=== PATIENT | male | born 1980 | race Caucasian/White ===

== ENCOUNTER 2022-05-09 11:14 | Inpatient (IN) ==
[2022-05-09 13:15] LABS: Basophils # (auto) 0.06 K/uL (0-0.2); Basophils % (auto) 2.2 %; Eosinophils # (auto) 0.07 K/uL (0-0.50); Eosinophils % (auto) 2.6 %; Hematocrit (blood only) 40.8 % (40.1-51.0); Hemoglobin 14.1 g/dl (14.0-18.0); Immature Granulocytes # (auto) 0.01 K/uL (0.00-0.02); Immature Granulocytes % (auto) 0.4 %; Lymphocytes # (auto) 1.05 K/uL (1.2-3.4); Lymphocytes % (auto) 38.6 %; Mean Corpuscular Hemoglobin 35.7 pg (25.0-34.0); Mean Corpuscular Hgb Conc 34.6 g/dL (32.0-36.0); Mean Corpuscular Volume 103.3 fL (80.0-100.0); Mean Platelet Volume 9.4 fL (9.4-12.4); Monocytes # (auto) 0.46 K/uL (0.24-0.82); Monocytes % (auto) 16.9 %; Neutrophils # (auto) 1.07 K/uL (1.4-6.5); Neutrophils % (auto) 39.3 %; Platelet Count 176 K/uL (130-400); RDW Coefficient of Variation 12.4 % (11.5-14.5); RDW Standard Deviation 47.2 fL (36.4-46.3); Red Blood Count 3.95 M/uL (4.63-6.08); White Blood Count 2.72 K/ul (4.8-10.8)
[2022-05-09 13:34] LABS: Albumin Globulin Ratio 1.5 (0.9-2); Albumin Level 4.3 gm/dl (3.4-5.0); Bilirubin,Total 0.6 mg/dl (0.2-1.0); Calcium 8.7 mg/dl (8.5-10.1); Creatinine Clr Calc Pharmacy 135.3 ml/min; Est GFR (African American) 130.2 ml/min; Est GFR (Non-African American) 112.4 ml/min; Globulin 2.8 gm/dl (2.5-4.0); Magnesium 2.2 mg/dl (1.7-2.4); Potassium 3.6 mmol/L (3.5-5.1); Total Protein 7.1 gm/dl (6.0-8.3)
[2022-05-09 13:39] LABS: Troponin I High Sensitivity 6.4 pg/ml (0-20)
[2022-05-09 13:42] LABS: Appearance Urine Clear (Clear); Bilirubin Urine Negative (Negative); Blood Urine Negative (Negative); Color Urine Yellow; Glucose Urine UA Negative (Negative); Ketones Urine Negative (Negative); Leukocyte Esterase Urine Negative (Negative); Nitrite Urine Negative (Negative); Protein Urine Negative (Negative); Specific Gravity Urine 1.004 (1.000-1.030); Urobilinogen Urine Negative (Negative); pH Urine 6.5 (4.5-7.5)
[2022-05-09] MEDS ORDERED: OPTIRAY 350 100ml IV ONE (14:09)
--- NOTE | 2022-05-09 14:31 | CT Scan Report ---
CT head/brain wo con CLINICAL HISTORY: etoh, trauma Technique: Contiguous axial CT images of the head were acquired from the base of the skull to the indra glenn without intravenous contrast administration. Images were viewed in brain, subdural and bone [facility]. Automated dose lowering techniques and/or adjustment according to patient size were utilized for this exam. Comparison: None available at the time of this dictation. Findings: The ventricles, basal cisterns, and cerebral sulci are normal. There is no acute intracranial hemorrh age or evidence of acute territorial infarction. Neither mass effect, shift of the midline structures , nor abnormal extra-axial fluid collections are shown. Imaged portions of the paranasal sinuses and mastoid air cells are clear. The orbits appear normal. There are no acute fractures of the calvaria or scalp swelling. Impression: No acute intracranial hemorrhage, no evidence of acute territorial infarction or other acute intracra nial disease process. ACT 112: Negative or not required by law. Electronically signed by: Julio Girard M.D. 05/09/2022 2:29 PM
--- NOTE | 2022-05-09 14:32 | CT Scan Report ---
ABDOMEN AND PELVIS CT WITH IV CONTRAST CT DOSE: 1372.12 mGy.cm HISTORY: Confusion. Generalized abdominal pain. etoh, diarrhea TECHNIQUE: Multiaxial CT images of the abdomen and pelvis were performed following the use of intrave nous contrast. A dose lowering technique was utilized adhering to the principles of ALARA. COMPARISON STUDY: None. FINDINGS: There are mild dependent changes seen within the lung bases. No pneumoperitoneum. No pneuma tosis. No fractures within the visualized osseous structures. The heart is borderline enlarged. Hepat ic steatosis. The gallbladder, pancreas, spleen, and adrenal glands are unremarkable. Normal right ki dney. There is a 10 cm left upper pole renal cyst. This contains a thin septation. There is also a sm all focus of peripheral calcification within this cyst posteriorly. There is mild bilateral perinephr ic edema which is likely chronic. No renal or ureteral stones. No retroperitoneal lymphadenopathy. Mi ld calcified plaque within the normal caliber abdominal aorta. Mild bladder wall thickening. No pelvi c free fluid. No bowel wall thickening or obstruction. Moderate well-formed stool within the colon. N ormal appendix. IMPRESSION: 1. Mild bladder wall thickening. Recommend correlation with urinalysis to exclude a cystitis. 2. No bowel wall thickening or obstruction. 3. Normal appendix. 4. Hepatic steatosis. 5. A 10 cm left renal cyst containing a small focus of calcification and a thin septation. This is co nsistent with a Bosniak type II cyst. ACT 112: Negative or not required by law. Electronically signed by: Andres Brooke M.D. 05/09/2022 2:31 PM
[2022-05-09 14:37] LABS: Amphetamines+Metham, Urine Neg (Neg); Barbiturates, Urine Neg (Neg); Benzodiazepine, Urine Pos (Neg); Cocaine, Urine Neg (Neg); MDMA (Ecstacy), Urine Neg (Neg); Methadone, Urine Neg (Neg); Opiate, Urine Neg (Neg); Phencyclidine, Urine Neg (Neg)
[2022-05-09] MEDS ORDERED: MULTI-VITAMIN INFUSION 10 ML, THIAMINE HCL 100 MG, FOLIC ACID 1 MG in SODIUM CHLORIDE 0... IV ONE (14:46)
[2022-05-09] MEDS ORDERED: SODIUM CHLORIDE 0.9% 1000ML 500 ML IV ONE (14:46)
--- NOTE | 2022-05-09 15:15 | Electrocardiogram Report ---
Test Reason : Blood Pressure : / mmHG Vent. Rate : 068 BPM Atrial Rate : 068 BPM P-R Int : 188 ms QRS Dur : 110 ms QT Int : 430 ms P-R-T Axes : 035 -02 -59 degrees QTc Int : 457 ms Normal sinus rhythm T wave abnormality, consider lateral ischemia Abnormal ECG No previous ECGs available Confirmed by Tyler Borja ([id number]) on 05/09/2022 3:14:54 PM Referred By: REFERRED SELF Confirmed By:Maykel Borja
--- NOTE | 2022-05-09 16:40 | Emergency Department Note ---
History of Present Illness General Chief complaint: Alcohol Intoxication Stated complaint: ALCOHOL;MENTAL HEALTH Time Seen by Provider: 05/09/22 12:03 Source: patient and family Mode of arrival: ambulatory Limitations: intoxication History of Present Illness Provider complaint: Alcohol intoxication, confusion This is a 41-year-old male presents emergency department with at bedside due to concern for worsening confusion and bizarre behavior recently. Patient admits to alcohol abuse and states he drinks on a daily basis. Patient states he drinks half of a handle of Jori rum daily. He and states he did recently go to rehab but signed out after 5 days as he realized he was not yet ready to quit drinking. Patient has been seeing a counselor the last 6 months for anxiety and depression. states recently he has been behaving bizarrely and more confused, even when he did not seem intoxicated. No recent illness, fevers or chills. He denies any concern for trauma or injury. He denies nausea or vomiting, black or bloody stools. He denies chest pain, abdominal pain, trouble breathing. He denies any overt dizziness, except when "tipsy". He states he was told previously that his liver enzymes are elevated likely due to his alcohol use. He was not scheduled to see GI until later on this month. No prior abdominal or liver imaging. concerned for other possible HEAD LINEMAN etiology of his confusion in addition to his alcohol abuse. He was at [facility] this morning for a mental health appointment and was referred to the emergency room. Home Medications Medication Instructions Recorded Confirmed Type ciprofloxacin HCl 500 mg tablet 500 mg PO BID 05/09/22 05/09/22 History escitalopram oxalate 10 mg tablet 10 mg PO DAILY 05/09/22 05/09/22 History lisinopril 20 mg tablet 20 mg PO DAILY 05/09/22 05/09/22 History propranolol 40 mg tablet 40 mg PO BID 05/09/22 05/09/22 History simvastatin 20 mg tablet 20 mg PO DAILY 05/09/22 05/09/22 History Allergies Allergy/AdvReac Type Severity Reaction Status Date / Time Penicillins Allergy Rash Verified 05/09/22 19:09 Past Med/Surg History Medical History Alcohol abuse Hypertension Social History Smoking Status: Former smoker Hx Alcohol Use: Yes Alcohol type: hard liquor Hx Substance Use: No Preferred Language: Indian Communication Ability: Effective Registered Phlebotomist Part Time Required: No Beliefs That Will Affect Care: None Current Living Situation: Family Feels Safe at Home: Yes Assistive Devices: None Review of Systems A total of 10 systems reviewed and were otherwise negative All systems reviewed & are unremarkable except as noted in HPI & below Physical Exam Vital Signs Vital Signs - 24 hr 05/09/22 17:00 05/09/22 17:00 05/09/22 17:12 Pulse Rate 105 H 109 H Pulse Rate from SpO2 Sensor 109 H Respiratory Rate 18 18 Blood Pressure 128/96 Blood Pressure Mean 106 Pulse Oximetry 97 05/09/22 17:20 05/09/22 17:30 05/09/22 17:30 Pulse Rate 103 H 92 H Pulse Rate from SpO2 Sensor 117 H 91 H Respiratory Rate 17 15 Blood Pressure 140/99 Blood Pressure Mean 112 Pulse Oximetry 100 99 05/09/22 17:40 05/09/22 17:50 05/09/22 18:00 Pulse Rate 88 86 Pulse Rate from SpO2 Sensor 89 85 Respiratory Rate 18 14 Blood Pressure 145/101 H Blood Pressure Mean 115 Pulse Oximetry 98 98 05/09/22 18:00 05/09/22 18:10 05/09/22 18:20 Pulse Rate 83 81 86 Pulse Rate from SpO2 Sensor 83 82 86 Respiratory Rate 22 22 15 Blood Pressure Blood Pressure Mean Pulse Oximetry 98 98 98 05/09/22 18:30 05/09/22 18:30 05/09/22 18:40 Pulse Rate 91 H 85 Pulse Rate from SpO2 Sensor 91 H 88 Respiratory Rate 21 22 Blood Pressure 147/96 H Blood Pressure Mean 113 Pulse Oximetry 100 97 05/09/22 18:50 05/09/22 19:00 05/09/22 19:00 Pulse Rate 84 94 H Pulse Rate from SpO2 Sensor 83 94 H Respiratory Rate 19 21 Blood Pressure 155/97 H Blood Pressure Mean 116 Pulse Oximetry 98 99 GENERAL: alert, well appearing, well nourished, no distress, non-toxic EYE EXAM: normal conjunctiva, PERRL and EOM's grossly intact OROPHARYNX: no exudate, no erythema, lips, buccal mucosa, and tongue normal and mucous membranes are moist NECK: supple, no nuchal rigidity, no adenopathy, non-tender LUNGS: Clear to auscultation. Normal chest wall mechanics, no w/r/r HEART: no murmurs, S1 normal and S2 normal ABDOMEN: abdomen soft, non-tender, normo-active bowel sounds, no masses, no rebound or guarding. No obvious hepatomegaly. BACK: Back is symmetrical on inspection and there is no deformity, no midline tenderness, no CVA tenderness. SKIN: no rashes and no bruising UPPER EXTREMITIES: upper extremities are grossly normal. FROM, nml pulses b/l. LOWER EXTREMITIES: No pitting edema. FROM, nml pulses b/l. NEURO EXAM: Normal sensorium, cranial nerves II-XII grossly intact, normal speech, no gross weakness of arms, no gross weakness of legs. Gross sensation intact. Course Course 1515: I asked case management to speak with the as she had inquired about possibly petitioning for mental health evaluation or involuntary treatment. We did review results up to this point. states patient asked her to bring alcohol into the hospital for him. Kalpesh, case management went and spoke with the . 1632: Patient beginning to become more tachycardic around 101. I updated . We will add Valium to help prevent evolving withdrawal at this point. Administered Medications Discontinued Medications Ciprofloxacin (Ciprofloxacin 500 Mg Tab) 500 mg PO BID ROSA Stop: 05/19/22 20:59 Last Admin: 05/10/22 09:05 Dose: 500 mg Documented By: Admin: 05/09/22 21:30 Dose: 500 mg Documented By: ANTHONY Diazepam (Diazepam 5 Mg/Ml Inj 10ml Vial) 5 mg IV NOW STA Stop: 05/09/22 16:38 Last Admin: 05/09/22 16:55 Dose: 5 mg Documented By: ANTOINE Diazepam (Diazepam 5 Mg/Ml Inj 10ml Vial) 5 mg IV NOW STA Stop: 05/09/22 17:31 Last Admin: 05/09/22 18:10 Dose: 5 mg Documented By: ANTOINE Escitalopram Oxalate (Escitalopram Oxalate 10 Mg Tab) 10 mg PO DAILY ROSA Stop: 06/09/22 08:59 Last Admin: 05/10/22 09:06 Dose: 10 mg Documented By: KIMBERLY Gadobutrol (Gadobutrol 65ml Vial) 8.8 ml IV ONCE ONE Stop: 05/10/22 10:08 Last Admin: 05/10/22 10:06 Dose: 8.8 ml Documented By: ASHLEE Sodium Chloride (Nss 1000ml) 500 mls @ 999 mls/hr IV .Q31M ONE Stop: 05/09/22 15:16 Last Infusion: 05/09/22 15:25 Dose: 0 mls/hr Documented By: Admin: 05/09/22 15:06 Dose: 999 mls/hr Documented By: KACY Multivitamins 10 ml/ Thiamine HCl 100 mg/ Folic Acid 1 mg/Sodium Chloride 1,011.2 mls @ 250 mls/hr IV .Q4H3M ONE Stop: 05/09/22 18:48 Last Infusion: 05/09/22 21:02 Dose: 0 mls/hr Documented By: Admin: 05/09/22 15:21 Dose: 250 mls/hr Documented By: ANTOINE Sodium Chloride (Nss 1000ml) 1,000 mls @ 75 mls/hr IV .[id number] ROSA Stop: 05/11/22 12:56 Last Admin: 05/10/22 12:17 Dose: 75 mls/hr Documented By: Infusion: 05/10/22 10:51 Dose: 75 mls/hr Documented By: Admin: 05/09/22 21:31 Dose: 75 mls/hr Documented By: ANTHONY Lorazepam 1 mg/ Syringe 1 mls @ 2 mls/min IV UD PRN; Protocol PRN Reason: EtOH Withdrawal AWSS Score 6,7 Stop: 06/08/22 20:56 Last Admin: 05/10/22 12:45 Dose: 2 mls/min Documented By: KIMBERLY Ioversol (Optiray 350 100ml) 89 ml IV ONCE ONE Stop: 05/09/22 14:10 Last Admin: 05/09/22 14:10 Dose: 89 ml Documented By: DENISHA Lisinopril (Lisinopril 20 Mg Tab) 20 mg PO DAILY ROSA Stop: 06/09/22 08:59 Last Admin: 05/10/22 09:06 Dose: 20 mg Documented By: KIMBERLY Propranolol HCl (Propranolol Hcl 20 Mg Tab) 40 mg PO BID ROSA Stop: 06/08/22 20:59 Last Admin: 05/10/22 09:06 Dose: 40 mg Documented By: Admin: 05/09/22 21:31 Dose: 40 mg Documented By: ANTHONY Medical Decision Making Differential Diagnosis Differential diagnosis includes etiologies such as alcohol intoxication, toxicologic, infection, hypoglycemia, electrolyte abnormalities, cardiac sources, intracerebral event, neurologic, as well as others were entertained. Medical Records Attestation: I reviewed the patient's medical records. Home Medications Current Medication List: was personally reviewed by me Laboratory Data Attestation: I reviewed the patient's lab results. Result diagrams: 05/09/22 12:10 05/10/22 06:10 Lab Results 05/09/22 05/09/22 05/09/22 Range/Units 12:10 12:10 12:10 WBC 2.72 L (4.8-10.8) K/ul RBC 3.95 L (4.63-6.08) M/uL Hgb 14.1 (14.0-18.0) g/dl Hct 40.8 (40.1-51.0) % MCV 103.3 H (80.0-100.0) fL MCH 35.7 H (25.0-34.0) pg MCHC 34.6 (32.0-36.0) g/dL RDW Std Deviation 47.2 H (36.4-46.3) fL RDW Coeff of [place] 12.4 (11.5-14.5) % Plt Count 176 (130-400) K/uL MPV 9.4 (9.4-12.4) fL Immature Gran % (Auto) 0.4 % Neut % (Auto) 39.3 % Lymph % (Auto) 38.6 % [place] % (Auto) 16.9 % Eos % (Auto) 2.6 % Baso % (Auto) 2.2 % Neut # (Auto) 1.07 L (1.4-6.5) K/uL Lymph # (Auto) 1.05 L (1.2-3.4) K/uL [place] # (Auto) 0.46 (0.24-0.82) K/uL Eos # (Auto) 0.07 (0-0.50) K/uL Baso # (Auto) 0.06 (0-0.2) K/uL Immature Gran # (Auto) 0.01 (0.00-0.02) K/uL Sodium 145 (136-145) mmol/L Potassium 3.6 (3.5-5.1) mmol/L Chloride 108 H (98-107) mmol/L Carbon Dioxide 29 (21-32) mmol/L Anion Gap 8 (3-11) BUN 9 (6-23) mg/dl Creatinine 0.75 (0.6-1.4) mg/dl Est Cr Clr Drug Dosing 135.3 ml/min Est GFR ( Amer) 130.2 ml/min Est GFR (Non-Af Amer) 112.4 ml/min BUN/Creatinine Ratio 12.0 (10-20) Glucose 104 H (70-99(Fasting)) mg/dl Calcium 8.7 (8.5-10.1) mg/dl Magnesium 2.2 (1.7-2.4) mg/dl Total Bilirubin 0.6 (0.2-1.0) mg/dl AST 59 H (13-39) U/L ALT 76 H (7-52) U/L Alkaline Phosphatase 49 (34-104) U/L Troponin I High Sens 6.4 (0-20) pg/ml Total Protein 7.1 (6.0-8.3) gm/dl Albumin 4.3 (3.4-5.0) gm/dl Globulin 2.8 (2.5-4.0) gm/dl Albumin/Globulin Ratio 1.5 (0.9-2) Lipase 135 H (11-82) U/L Vitamin B12 (180-914) pg/ml Folate (>5.38) ng/ml TSH 0.991 (0.300-4.500) uIu/ml Urine Color Urine Appearance (Clear) Urine pH (4.5-7.5) Ur Specific [place] (1.000-1.030) Urine Protein (Negative) Urine Glucose (UA) (Negative) Urine Ketones (Negative) Urine Blood (Negative) Urine Nitrite (Negative) Urine Bilirubin (Negative) Urine Urobilinogen (Negative) Ur Leukocyte Esterase (Negative) Urine Opiates Screen (Neg) Ur Methadone, Qual (Neg) Urine Barbiturates (Neg) Ur Phencyclidine (PCP) (Neg) U Amphetamin/Meth Scrn (Neg) MDMA (Ecstasy) Screen (Neg) U OH-Alprazolam Confrm (<25) ng/mL U Benzodiazepines Scrn (Neg) 7-Amino Clonazepam (<25) ng/mL Ur Nordiazepam Confirm (<50) ng/mL U OH-ethylflurazepam (<50) ng/mL U Lorazepam Cnf GC/MS (<50) ng/mL U Oxazepam Confm GC/MS (<50) ng/mL Ur Temazepam Confirm (<50) ng/mL U OH-Triazolam Confirm (<50) ng/mL U OH-Midazolam Confirm (<50) ng/mL Ur Cocaine Metabolite (Neg) U Marijuana (THC) Screen (Neg) Drug Screen Comment Ethyl Alcohol mg/dL (<10.0) mg/dl 05/09/22 05/09/22 05/09/22 Range/Units 12:10 12:10 13:15 WBC (4.8-10.8) K/ul RBC (4.63-6.08) M/uL Hgb (14.0-18.0) g/dl Hct (40.1-51.0) % MCV (80.0-100.0) fL MCH (25.0-34.0) pg MCHC (32.0-36.0) g/dL RDW Std Deviation (36.4-46.3) fL RDW Coeff of Ak[place] (11.5-14.5) % Plt Count (130-400) K/uL MPV (9.4-12.4) fL Immature Gran % (Auto) % Neut % (Auto) % Lymph % (Auto) % [place] % (Auto) % Eos % (Auto) % Baso % (Auto) % Neut # (Auto) (1.4-6.5) K/uL Lymph # (Auto) (1.2-3.4) K/uL [place] # (Auto) (0.24-0.82) K/uL Eos # (Auto) (0-0.50) K/uL Baso # (Auto) (0-0.2) K/uL Immature Gran # (Auto) (0.00-0.02) K/uL Sodium (136-145) mmol/L Potassium (3.5-5.1) mmol/L Chloride (98-107) mmol/L Carbon Dioxide (21-32) mmol/L Anion Gap (3-11) BUN (6-23) mg/dl Creatinine (0.6-1.4) mg/dl Est Cr Clr Drug Dosing ml/min Est GFR ( Amer) ml/min Est GFR (Non-Af Amer) ml/min BUN/Creatinine Ratio (10-20) Glucose (70-99(Fasting)) mg/dl Calcium (8.5-10.1) mg/dl Magnesium (1.7-2.4) mg/dl Total Bilirubin (0.2-1.0) mg/dl AST (13-39) U/L ALT (7-52) U/L Alkaline Phosphatase (34-104) U/L Troponin I High Sens (0-20) pg/ml Total Protein (6.0-8.3) gm/dl Albumin (3.4-5.0) gm/dl Globulin (2.5-4.0) gm/dl Albumin/Globulin Ratio (0.9-2) Lipase (11-82) U/L Vitamin B12 605 (180-914) pg/ml Folate 11.39 (>5.38) ng/ml TSH (0.300-4.500) uIu/ml Urine Color Yellow Urine Appearance Clear (Clear) Urine pH 6.5 (4.5-7.5) Ur Specific [place] 1.004 (1.000-1.030) Urine Protein Negative (Negative) Urine Glucose (UA) Negative (Negative) Urine Ketones Negative (Negative) Urine Blood Negative (Negative) Urine Nitrite Negative (Negative) Urine Bilirubin Negative (Negative) Urine Urobilinogen Negative (Negative) Ur Leukocyte Esterase Negative (Negative) Urine Opiates Screen (Neg) Ur Methadone, Qual (Neg) Urine Barbiturates (Neg) Ur Phencyclidine (PCP) (Neg) U Amphetamin/Meth Scrn (Neg) MDMA (Ecstasy) Screen (Neg) U OH-Alprazolam Confrm (<25) ng/mL U Benzodiazepines Scrn (Neg) 7-Amino Clonazepam (<25) ng/mL Ur Nordiazepam Confirm (<50) ng/mL U OH-ethylflurazepam (<50) ng/mL U Lorazepam Cnf GC/MS (<50) ng/mL U Oxazepam Confm GC/MS (<50) ng/mL Ur Temazepam Confirm (<50) ng/mL U OH-Triazolam Confirm (<50) ng/mL U OH-Midazolam Confirm (<50) ng/mL Ur Cocaine Metabolite (Neg) U Marijuana (THC) Screen (Neg) Drug Screen Comment Ethyl Alcohol mg/dL 378.5 H (<10.0) mg/dl 05/09/22 05/09/22 Range/Units 13:15 13:15 WBC (4.8-10.8) K/ul RBC (4.63-6.08) M/uL Hgb (14.0-18.0) g/dl Hct (40.1-51.0) % MCV (80.0-100.0) fL MCH (25.0-34.0) pg MCHC (32.0-36.0) g/dL RDW Std Deviation (36.4-46.3) fL RDW Coeff of [place] (11.5-14.5) % Plt Count (130-400) K/uL MPV (9.4-12.4) fL Immature Gran % (Auto) % Neut % (Auto) % Lymph % (Auto) % [place] % (Auto) % Eos % (Auto) % Baso % (Auto) % Neut # (Auto) (1.4-6.5) K/uL Lymph # (Auto) (1.2-3.4) K/uL [place] # (Auto) (0.24-0.82) K/uL Eos # (Auto) (0-0.50) K/uL Baso # (Auto) (0-0.2) K/uL Immature Gran # (Auto) (0.00-0.02) K/uL Sodium (136-145) mmol/L Potassium (3.5-5.1) mmol/L Chloride (98-107) mmol/L Carbon Dioxide (21-32) mmol/L Anion Gap (3-11) BUN (6-23) mg/dl Creatinine (0.6-1.4) mg/dl Est Cr Clr Drug Dosing ml/min Est GFR ( Amer) ml/min Est GFR (Non-Af Amer) ml/min BUN/Creatinine Ratio (10-20) Glucose (70-99(Fasting)) mg/dl Calcium (8.5-10.1) mg/dl Magnesium (1.7-2.4) mg/dl Total Bilirubin (0.2-1.0) mg/dl AST (13-39) U/L ALT (7-52) U/L Alkaline Phosphatase (34-104) U/L Troponin I High Sens (0-20) pg/ml Total Protein (6.0-8.3) gm/dl Albumin (3.4-5.0) gm/dl Globulin (2.5-4.0) gm/dl Albumin/Globulin Ratio (0.9-2) Lipase (11-82) U/L Vitamin B12 (180-914) pg/ml Folate (>5.38) ng/ml TSH (0.300-4.500) uIu/ml Urine Color Urine Appearance (Clear) Urine pH (4.5-7.5) Ur Specific [place] (1.000-1.030) Urine Protein (Negative) Urine Glucose (UA) (Negative) Urine Ketones (Negative) Urine Blood (Negative) Urine Nitrite (Negative) Urine Bilirubin (Negative) Urine Urobilinogen (Negative) Ur Leukocyte Esterase (Negative) Urine Opiates Screen Neg (Neg) Ur Methadone, Qual Neg (Neg) Urine Barbiturates Neg (Neg) Ur Phencyclidine (PCP) Neg (Neg) U Amphetamin/Meth Scrn Neg (Neg) MDMA (Ecstasy) Screen Neg (Neg) U OH-Alprazolam Confrm NEGATIVE (<25) ng/mL U Benzodiazepines Scrn Pos H (Neg) 7-Amino Clonazepam NEGATIVE (<25) ng/mL Ur Nordiazepam Confirm NEGATIVE (<50) ng/mL U OH-ethylflurazepam NEGATIVE (<50) ng/mL U Lorazepam Cnf GC/MS NEGATIVE (<50) ng/mL U Oxazepam Confm GC/MS 54 H (<50) ng/mL Ur Temazepam Confirm 156 H (<50) ng/mL U OH-Triazolam Confirm NEGATIVE (<50) ng/mL U OH-Midazolam Confirm NEGATIVE (<50) ng/mL Ur Cocaine Metabolite Neg (Neg) U Marijuana (THC) Screen Neg (Neg) Drug Screen Comment SEE NOTE Ethyl Alcohol mg/dL (<10.0) mg/dl Imaging Data Radiologist's Impression: Abdomen/Pelvis CT 05/09/22 12:[address] WITH IV CONTRAST CT DOSE: 1372.12 mGy.cm HISTORY: Confusion. Generalized abdominal pain. etoh, diarrhea TECHNIQUE: Multiaxial CT images of the abdomen and pelvis were performed following the use of intravenous contrast. A dose lowering technique was utilized adhering to the principles of ALARA. COMPARISON STUDY: None. FINDINGS: There are mild dependent changes seen within the lung bases. No pneumoperitoneum. No pneumatosis. No fractures within the visualized osseous structures. The heart is borderline enlarged. Hepatic steatosis. The gallbladder, pancreas, spleen, and adrenal glands are unremarkable. Normal right kidney. There is a 10 cm left upper pole renal cyst. This contains a thin septation. There is also a small focus of peripheral calcification within this cyst posteriorly. There is mild bilateral perinephric edema which is likely cloth bleaching range tender lynn. No renal or ureteral stones. No retroperitoneal lymphadenopathy. Mild calcified plaque within the normal caliber abdominal aorta. Mild bladder wall thickening. No pelvic free fluid. No bowel wall thickening or obstruction. Moderate well-formed stool within the colon. Normal appendix. IMPRESSION: 1. Mild bladder wall thickening. Recommend correlation with urinalysis to exclude a cystitis. 2. No bowel wall thickening or obstruction. 3. Normal appendix. 4. Hepatic steatosis. 5. A 10 cm left renal cyst containing a small focus of calcification and a thin septation. This is consistent with a Bosniak type II cyst. ACT 112: Negative or not required by law. Electronically signed by: Andres Brooke M.D. 05/09/2022 2:[address] 05/09/22 12:45 CT head/brain wo con CLINICAL HISTORY: etoh, trauma Technique: Contiguous axial CT images of the head were acquired from the base of the skull to the vertex without intravenous contrast administration. Images were viewed in brain, subdural and bone windows. Automated dose lowering techniques and/or adjustment according to patient size were utilized for this exam. Comparison: None available at the time of this dictation. Findings: The ventricles, basal cisterns, and cerebral sulci are normal. There is no acute intracranial hemorrhage or evidence of acute territorial infarction. Neither mass effect, shift of the midline structures, nor abnormal extra-axial fluid collections are shown. Imaged portions of the paranasal sinuses and mastoid air cells are clear. The orbits appear normal. There are no acute fractures of the calvaria or scalp swelling. Impression: No acute intracranial hemorrhage, no evidence of acute territorial infarction or other acute intracranial disease process. ACT 112: Negative or not required by law. Electronically signed by: Julio Girard M.D. 05/09/2022 2:29 PM ECG Data Attestation: I personally reviewed and interpreted this ECG as follows: Indication: + altered mental status Rate (beats per minute): 68 Rhythm: + normal sinus ECG Intervals/blocks: + Normal QRS and + Normal QT ECG [place]: + Normal ECG ST segments: + T-wave inversions (II, III, aVF, V4-6) MDM Narrative An order was placed for continuous cardiac monitoring. The monitor shows a rate of _82__ with _normal sinus_ rhythm. This is a 41 yo male who presents with due to concern for increased confusion and bizarre behavior. Patient admits to ongoing alcohol abuse. No recent trauma or illness. Labs drawn and sent, IVF given, and CT imaging obtained due to bizarre behavior and confusion. Labs and imaging reassuring with only mild elevation of transaminases and lipase, likely from etoh. No other evidence of acute pathology. Patient noted to have increasing tachycardia and hypertension while asleep and alcohol still in the 200's. GIven hx of alcohol abuse and concern for withdrawal risks as well as recent additional bizarre behavior, case discussed with hospitalist for additional evaluation and mgmt. Case mgmt did speak with also. No criteria despite mental health hx for 302. Impression & Plan Alcoholic intoxication, Alcohol abuse, Abnormal ECG, Transaminitis, Elevated lipase, Confusion Discharge Plan Visit Data Chief Complaint: Alcohol Intoxication Stated Complaint: ALCOHOL;MENTAL HEALTH ED Provider: Ann Jeong Discharge Problem: Alcoholic intoxication, Alcohol abuse, Abnormal ECG, Transaminitis, Elevated lipase, Confusion Patient Disposition: Admitted As Inpatient Discharge Instructions Interventions: ED Discharge Assessment Last Done: 05/09/22 20:32
--- NOTE | 2022-05-09 18:52 | History & Physical Report ---
Date of Service May 09, 2022 Assessment & Plan (1) Alcohol withdrawal: Plan: -Patient is a high risk for alcohol withdrawal. -Ethyl Alcohol was 378.5 in the ED -AWSS protocol in place. (2) Confusion: Plan: -Majority of the patient's other complaints stem from alcohol use. -Vit b 12 and folate were normal. -Will hold off on neurology referral until patient is alcohol free and goes through withdrawal. (3) Elevated lipase: Plan: -Lipase elevated at 135. Most likely 2/2 alcohol abuse. -Will continue to monitor (4) Alcohol abuse: Plan: -Patient recently went through dextox 6 days ago. -Immediately started drinking once he left. States that at this time he does not plan to stop drinking. -Consult psychiatry (5) Hypertension: Plan: -Will continue home propranolol 20mg QD (6) Transaminitis: Plan: -Most likely 2/2 alcohol abuse. (7) Depression: Plan: -Will continue escitalopram 10mg QD (8) Prostatitis: Plan: -UA in the ED negative for UTI -Patient states that he recently saw a urologist in [place] and had an elevated PSA and was told to start on cipro for 20 days. -Patient states that he still has 10 days left. With no records to go off of will continue with cipro -Will assume for prostatitis at this time and continue cipro 500mg BID while admitted. (9) Renal cyst: Plan: -10cm Bosniak type II cyst on the L kidney. -Monitor outpatient. Plan Fluids: NSS @ 75ml/hr Nutrition: regular Code status: full code DVT ppx: none Consults: psych Dispo: PCU/Tele Thank you for allowing me to participate in the care of your patient. -Dr. Sj Lerner PGY1 History of Present Illness Chief Complaint: Alcohol withdrawal Primary Care Provider: Kalpesh Christopher, This is a 41-year-old male presents emergency department with at bedside due to concern for worsening confusion and bizarre behavior recently. Patient admits to alcohol abuse and states he drinks on a daily basis. Patient states he drinks half of a handle of Bacardi rum every 1-2 days. He did recently go to rehab but signed out after 5 days as he realized he was not yet ready to quit drinking. He was receiving benzos as part of his detox at that time. Patient has been seeing a counselor the last 6 months for anxiety and depression. states recently he has been behaving bizarrely and more confused, even when he did not seem intoxicated. No recent illness, fevers or chills. He denies any concern for trauma or injury. He denies nausea or vomiting, black or bloody stools. He denies chest pain, abdominal pain, trouble breathing. He denies any overt dizziness, except when "tipsy". He states he was told previously that his liver enzymes are elevated likely due to his alcohol use. He was not scheduled to see GI until later on this month. No prior abdominal or liver imaging. 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 He was at [facility] this morning for a mental health appointment and was referred to the emergency room. Patient has had DTs with withdrawal in the past. Allergies Allergy/AdvReac Type Severity Reaction Status Date / Time Penicillins Allergy Rash Verified 05/09/22 19:09 Home Medications Medication Instructions Recorded Confirmed Type ciprofloxacin HCl 500 mg tablet 500 mg PO BID 05/09/22 05/09/22 History escitalopram oxalate 10 mg tablet 10 mg PO DAILY 05/09/22 05/09/22 History lisinopril 20 mg tablet 20 mg PO DAILY 05/09/22 05/09/22 History propranolol 40 mg tablet 40 mg PO BID 05/09/22 05/09/22 History simvastatin 20 mg tablet 20 mg PO DAILY 05/09/22 05/09/22 History Past Med/Surg History Medical History Alcohol abuse Hypertension Social History Smoking Status: Former smoker Hx Alcohol Use: Yes Alcohol type: hard liquor Hx Substance Use: No Preferred Language: Belarusian Communication Ability: Effective Lead Installer Required: No Beliefs That Will Affect Care: None Current Living Situation: Family Feels Safe at Home: Yes Assistive Devices: None Review of Systems Review of Systems: Constitutional: denies fever, chills, fatigue HEENT: denies congestion, sore throat CV: denies chest pain, palpitations Resp: denies shortness of breath, cough GI: denies abdominal pain, nausea, vomiting, constipation, diarrhea : denies pain with urination, change in urinary frequency Neuro: denies new numbness, tingling, weakness Physical Exam Physical Exam: Constitutional: well-appearing, no acute distress HEENT: NCAT, no conjunctival injection CV: regular rhythm, no murmur appreciated, extremities well-perfused, no LE edema Resp: CTABL, no wheezes/rales/rhonchi appreciated, no increased work of breathing GI: soft, nondistended, nontender, BS normoactive MSK: no gross deformities appreciated Skin: warm, dry, no rash appreciated Neuro: alert, oriented, no focal neurologic deficit appreciated Results & Data Results & Data ([facility]) Vital Signs (Past 12 Hours) Vital Signs Temp Pulse Resp BP Pulse Ox O2 Del Method 05/09/22 17:50 86 14 98 05/09/22 17:40 88 18 98 05/09/22 17:30 92 H 15 99 05/09/22 17:30 140/99 05/09/22 17:20 103 H 17 100 05/09/22 17:12 109 H 18 97 05/09/22 17:00 105 H 18 05/09/22 17:00 128/96 05/09/22 16:50 98 H 21 05/09/22 16:40 100 H 21 05/09/22 16:30 98 H 20 05/09/22 16:30 125/79 05/09/22 16:20 96 H 19 05/09/22 16:10 96 H 18 05/09/22 16:01 119/89 05/09/22 16:01 96 H 20 05/09/22 16:00 93 H 18 05/09/22 15:50 93 H 21 05/09/22 15:40 90 21 05/09/22 15:30 83 23 05/09/22 15:30 125/76 05/09/22 15:20 83 12 95 05/09/22 15:10 82 20 05/09/22 15:00 79 19 96 05/09/22 15:00 129/78 05/09/22 14:50 88 23 99 05/09/22 14:40 83 23 99 05/09/22 14:30 87 18 99 05/09/22 14:30 142/91 H 05/09/22 14:20 86 21 97 05/09/22 14:15 89 32 H 05/09/22 13:59 84 18 97 05/09/22 13:50 86 28 H 90 05/09/22 13:40 78 16 98 05/09/22 13:30 79 19 96 Room Air 05/09/22 13:30 124/97 05/09/22 13:00 72 22 99 Room Air 05/09/22 13:00 117/70 05/09/22 12:53 69 17 97 Room Air 05/09/22 11:27 36.4 C L 73 16 107/72 96 Room Air Supervising Physician Co-Signing Physician Notes Patient seen and examined at bedside. During face to face encounter, I obtained a history and physical examination. I reviewed above note and agree with it. I discussed plan of care with patient and Dr. Lerner. Patient admitted for alcohol withdrawal. will consult neurology as patient describes possible syncope episodes. Resident Activity Tracking Resident Involvement: Resident Care Provided Care Provided: Adult Hospital Medicine
[2022-05-09] MEDS ORDERED: Ativan IV Alcohol Withdrawal--Active Protocol IV PRN (20:57)
[2022-05-09] MEDS ORDERED: LORazepam 2 MG in SYRINGE 0 ML IV PRN (20:57)
[2022-05-09] MEDS ORDERED: ONDANSETRON INJ 2 MG/ML 2 ML VIAL IV PRN (20:57)
[2022-05-09] MEDS ORDERED: LORazepam 1 MG in SYRINGE 0 ML IV PRN (20:57)
[2022-05-09] MEDS ORDERED: LORazepam 3 MG in SYRINGE 0 ML IV PRN (20:57)
[2022-05-09] MEDS: CIPROFLOXACIN 500 MG TAB PO SCH (21:30)
[2022-05-09] MEDS: PROPRANOLOL HCL 20 MG TAB PO SCH (21:31)
[2022-05-09] MEDS: SODIUM CHLORIDE 0.9% 1000ML 1,000 ML IV SCH (21:31)
--- NOTE | 2022-05-10 03:59 | Communication Note ---
Date of Service: May 10, 2022 Notified by nursing that patient's requested that patient's outpatient psychiatrist be contacted for better understanding of the context of his pre sentation. Will defer to dayshift. I believe this does require consent from patient personally.
[2022-05-10 07:23] LABS: Albumin Globulin Ratio 1.6 (0.9-2); Albumin Level 3.6 gm/dl (3.4-5.0); BUN Creatinine Ratio 12.5 (10-20); Bilirubin,Total 0.7 mg/dl (0.2-1.0); Calcium 7.9 mg/dl (8.5-10.1); Creatinine Clr Calc Pharmacy 140.9 ml/min; Est GFR (African American) 132.4 ml/min; Est GFR (Non-African American) 114.3 ml/min; Globulin 2.2 gm/dl (2.5-4.0); Potassium 3.7 mmol/L (3.5-5.1); Total Protein 5.8 gm/dl (6.0-8.3)
[2022-05-10] MEDS ORDERED: lisinopril 20 MG TAB PO SCH (09:00)
[2022-05-10] MEDS ORDERED: ESCITALOPRAM OXALATE 10 MG TAB PO SCH (09:00)
[2022-05-10] MEDS: CIPROFLOXACIN 500 MG TAB PO SCH (09:05)
[2022-05-10] MEDS: PROPRANOLOL HCL 20 MG TAB PO SCH (09:06)
--- NOTE | 2022-05-10 09:33 | Neurology Consultation ---
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 Recently self discharged from rehab about 1 week ago, returned home and resumed his usual drinking behavior. Patient had an unusual episode of altered mental status, confusion, amnesia, persisting for several hours yesterday, observed by his spouse, although occurring without obvious seizure-like activity. He has had several other similar, although briefer episodes over the previous 6 months. It is notable that they do have a daughter with a genetically based epilepsy syndrome as described in the HPI. Yet, it is unclear whether or not either the patient or his spouse may carry this genetic abnormality as well. Neither of them have epilepsy. 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 Yet, he does not have signs or symptoms suggestive of Wernicke encephalopathy at this time. He is mildly tremulous and likely has some alcohol withdrawal features that will probably escalate over the next day or so. He will need continued monitoring and medical support for this issue. In terms of additional neurological work-up. I have ordered a gadolinium enhanced brain MRI, seizure protocol, for further assessment. I would also like this patient to have an EEG completed. This test can be completed as an outpatient as it is nonurgent at this time. Psychiatry has been consulted. History of Present Illness Reason for Consultation: black outs Requesting Physician: Dr. Lerner Attending Physician: Tanesha Hicks MD History of Present Illness The patient is a 41-year-old male who presented to the [facility] for further evaluation and management of an unusual blackout episode. Patient spouse at bedside who corroborated this history. The patient endorses a lo ngstanding history of heavy alcohol abuse. 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 He typically drinks 1-1/2 L of rum every other day and has done so for many years. He informs me that he had checked himself out of rehab about 1 week ago, returned home, and resumed his usual drinking behavior. Both the patient and his spouse were planning to go to [place] for psychiatric care yesterday morning. He was apparently going to drive although his spouse noted that he was behaving strangely. He was confused and relatively amnestic but seem to be responding appropriately to simple questions. She elected to drive, instead of her spouse, at that time. 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 Although she remarks that he was acting bizarrely, she did not observe any eye blinking, lip smacking, automatisms, or obvious convulsive activity. However, she does admit that her attention was more directed to driving at that time, rather than observing her 's behavior in the car. She indicates that his altered mental status persisted from about 6:30 in the morning to perhaps 2:30 in the afternoon yesterday. He apparently fell asleep in the hospital, awoke, and was back to his usual self. She does indicate that he has had similar episodes of altered cognitive functioning and behavior over the past 6 months. Again, however, no obvious convulsive activity has been observed. They do have a daughter who was diagnosed with epilepsy, genetically based epilepsy syndrome, spouse remarks that their daughter has the PCDH19 gene mutation. I did find that this type of epilepsy is rare with early onset seizures, cognitive and sensory delays, and behavioral problems due to genetic mutation on the X chromosome. Interestingly, it may also carry the gene on their X chromosome are typically not affected. In contrast, 90% of women who have this gene mutation on one of their 2 X chromosome's have symptoms. Other symptoms for this condition that have been described include cognitive and intellectual disability, behavioral problems, aggression, ADHD, ADD, anxiety, OCD, autistic spectrum features, depression, psychosis. In any event, it is unclear at this time which parent may have this gene. Is also unclear how it may present in apparently "unaffected" individuals. Upon further review, patient has never had a seizure or convulsive episode, no prior history of neurodevelopmental problems. He has been treated for depression with several different antidepressants including Wellbutrin and Lexapro recently. He is on propranolol to address tremor which may have arisen during treatment with Wellbutrin. Psychiatry is also been consulted. Allergies Allergy/AdvReac Type Severity Reaction Status Date / Time Penicillins Allergy Rash Verified 05/09/22 19:09 Home Medications Medication Instructions Recorded Confirmed Type ciprofloxacin HCl 500 mg tablet 500 mg PO BID 05/09/22 05/09/22 History escitalopram oxalate 10 mg tablet 10 mg PO DAILY 05/09/22 05/09/22 History lisinopril 20 mg tablet 20 mg PO DAILY 05/09/22 05/09/22 History propranolol 40 mg tablet 40 mg PO BID 05/09/22 05/09/22 History simvastatin 20 mg tablet 20 mg PO DAILY 05/09/22 05/09/22 History Patient History Medical History Alcohol abuse Hypertension Social History Smoking Status: Former smoker Smoking End Date: 10 yrs ago; Hx Alcohol Use: Yes Alcohol type: hard liquor Hx Substance Use: No Preferred Language: Cypriot Communication Ability: Effective Answering Service Telephone Operator Required: No Beliefs That Will Affect Care: None Current Living Situation: Family Feels Safe at Home: Yes Safety Concerns: Feels Safe At This Time Assistive Devices: None Review of Systems Constitutional: no fever and no chills Eyes: no blind spots and no diplopia Ear, Nose, Mouth, Throat: no ear pain and no hearing loss Respiratory: no cough and no dyspnea Cardiovascular: no chest pain and no palpitations Gastrointestinal: no nausea and no vomiting Genitourinary: no dysuria or no urinary incontinence Musculoskeletal: no back pain, no neck pain, no joint pain and no myalgia Integumentary: no rash and no lesions Neurologic: as per Subjective / HPI, + tremor(s), + restless legs, + confusion and + memory loss Psychiatric: as per Subjective / HPI and + depression; no paranoia and no hallucinations Other than alcohol, no history of other substance abuse. Hematologic / Lymphatic: no easy bleeding and no easy bruising Exam (Neuro) Constitutional: well developed and well nourished; no acute distress Eyes: normal visual alfonso by confrontation, PERRL, normal accommodation and EOM intact bilaterally; no fundoscopic abnormality, no nystagmus and no papilledema Cardiovascular: Vessels: normal carotid upstroke; no carotid bruit Neurologic: Oriented to:: Person, Place and Time Memory: Short Term Intact and Remote Intact Attention: Span Intact and Concentration Intact Language: Naming Objects and Repeating Phrases Speech Fluency: negative Dysarthria Speech Aphasia: negative Aphasia Fund of Knowledge: Current Events, Past History and Vocabulary Cranial Nerves: Normal II (Visual alfonso full to confrontation, visual acuity normal), III, IV, (Pupils equal round reactive to light and accommodation, eye movements normal), V (Facial sensation intact), VII (There is no facial droop or weakness), VIII (Hearing intact), IX, X (Palate elevates to midline), XI (Shoulder shrug intact) and XII (Tongue protrudes to midline) Motor Strength: Normal Lower Extremities and Normal Upper Extremities; negative Pronator Drift Motor Tone: Normal Lower Extremities and Normal Upper Extremities Muscle Bulk/Involuntary Movements: Action Tremor; negative Muscle Atrophy or Rest Tremor (Arm) Sensation: Light Touch Intact, Pain/Temperature Intact, Vibration Intact and Proprioception Intact Coordination: Normal; negative Limited Balance, Dysdiadochokinesia, Finger-Nose Abnormal or Heel-Castañeda Abnormal Deep Tendon Reflexes: Rt Triceps: 2+, Lt Triceps: 2+, Rt Biceps: 2+, Lt Biceps: 2+, Rt Brachioradialis: 2+, Lt Brachioradialis: 2+, Rt Patellar: 2+, Lt Patellar: 2+, Rt Ankle: 2+ and Lt Ankle: 2+ Special Tests: negative Babinski Present Gait: Normal Station and Gait Results & Data ([facility]) Vital Signs (Past 12 Hours) Vital Signs Temp Pulse Pulse Pulse Resp BP BP 05/10/22 07:28 36.9 C 68 20 167/91 H 05/10/22 03:39 37.1 C 70 17 158/102 H 05/09/22 23:09 92 H 05/09/22 22:35 149/102 H 05/09/22 22:27 88 18 162/101 H 05/09/22 21:50 91 H 05/09/22 21:05 37.2 C 90 17 149/96 H Pulse Ox O2 Del Method 05/10/22 07:28 97 Room Air 05/10/22 03:39 95 Room Air 05/09/22 23:09 05/09/22 22:35 05/09/22 22:27 97 Room Air 05/09/22 21:50 05/09/22 21:05 96 Room Air Laboratory Results WBC 2.72, hemoglobin 14.1, hematocrit 40.8, MCV 103.3, platelet count 176, sodium 142, potassium 3.7, BUN 9, creatinine 0.72, glucose 87, AST 37, ALT 54, vitamin B12 605, folate 11.39, TSH 0.991, ethyl alcohol level 378.5, SARS-CoV-2 negative Diagnostic Findings I independently reviewed the CT of the head completed yesterday, no hemorrhage or acute process, no hydrocephalus, there is mild cortical atrophy. No subdural collections. Electrocardiogram revealed a normal sinus rhythm, 68 bpm. Coding Level of Care Code 62497 Initial Inpt Care Lvl 3 Diagnoses Alcohol abuse F10.10 Alcohol withdrawal F10.939 Confusion R41.0
[2022-05-10] MEDS ORDERED: GADOBUTROL 65ML VIAL IV ONE (10:07)
[2022-05-10] MEDS: SODIUM CHLORIDE 0.9% 1000ML 1,000 ML IV SCH (12:17)
--- NOTE | 2022-05-10 13:16 | Psychiatric Consultation ---
Date of Consultation May 10, 2022 Impression / Recommendations Impression 41 yo with acute confusional episode in the context of recent detox then relapse, TIGRE 387. Reviewed with patient and that despite his appearance he was significantly intoxicated, clearly more than 1 drink, and that impossible to determine efficacy of medications/degree depression given his level of ETOH use. Reviewed that he has recently been in a constant state of intoxication or withdrawal, no symptoms suggest seizure/post ictal but cannot be fully excluded. MRI is still pending. At this time his MSE is clear and there is no evidence of SI or psychosis and appropriate treatment is rehab. He does not meet criteria for inpatient psychiatric admission nor does he meet criteria for involuntary psychiatric commitment as [place] mental health code does not allow for such for substance abuse/depenedence. They both voiced understanding but remained concerned about why this episode so different than his typical presentation. Reviewed that given recent detox and Valium taper (is likely still metabolites in system) and/or combo with SSRI may have felicita altered response. (1) Alcohol withdrawal: (2) Depression: (3) Alcoholic intoxication: Plan he is currently not committed to inpatient rehab but may consider dual dx IOP, aware referral cannot be made on weekend [facility] [place] for coordination of care briefly discussed Revia from a harm reduction model. reviewed that I would not make changes in Lexapro in setting of acute withdrawal. Psych History Identifying Data 41 yo male from [place], seen with his at bedside, admit [facility] yesterday afternoon on direction from [place] appointment for period of confusion. Consult is by hospitalist service for alcohol withdrawal. Chief Complaint "I didn't look, we thought there must be something else going on, now I feel great/fine". History of Present Illness Patient has an extensive history of ETOh abuse/dependence, only recently sough detox at [facility] for 6 days, was tapered off of Valium and drank on return home for 2 nights. Had "1 drink" yesterday am and reportedly drove daughter to school (ED childlined, unclear if patient aware). He and his have been having issues/seeing a couple's therapist. Per he "smelled of alcohol" at his appointment but not his "usual drunk" and was disoriented/didn't understand where he was. She has been more withdrawn in the past 2-3 weeks, though also had a several month trial of Wellbutrin during which he seemed "flat like he didn't care" per . Of course he was drinking heavily hard liquor during this time. He has been on Lexapro for 2 months, hasn't been attending to work, then entered [facility] but admittedly has no desire to become sober. He said he declined f/u from rehab stating he'd call the IOP on his own and "as long as I can check my email for 15 min here/there I know what I have to do for the day." With regards to "bizarre" behavior--they both state refers to him not acting himself, not SI/HI/gannon or delusions. His PHQ-9 was 15 with 0 on #9. He has no other psych hx (no suicide attempts, no inpatient psych, no access to weapons). Past Psychiatric History Outpatient Services: [facility] Allergies Allergy/AdvReac Type Severity Reaction Status Date / Time Penicillins Allergy Rash Verified 05/09/22 19:09 Home Medications Medication Instructions Recorded Confirmed Type ciprofloxacin HCl 500 mg tablet 500 mg PO BID 05/09/22 05/09/22 History escitalopram oxalate 10 mg tablet 10 mg PO DAILY 05/09/22 05/09/22 History lisinopril 20 mg tablet 20 mg PO DAILY 05/09/22 05/09/22 History propranolol 40 mg tablet 40 mg PO BID 05/09/22 05/09/22 History simvastatin 20 mg tablet 20 mg PO DAILY 05/09/22 05/09/22 History Family History sis with depression, father on WB, PGF ETOH. 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: No Beliefs That Will Affect Care: None Current Living Situation: Family Feels Safe at Home: Yes Safety Concerns: Feels Safe At This Time Assistive Devices: None Physical Exam Psychiatric: Orientation: alert and oriented x 3 Apperance: appropriately dressed and appropriately groomed Eye Contact: good eye contact Motor Behavior: no abnormal motor movements Speech: normal rate/rhythm/volume of speech Affect: euthymic affect Mood: + anxious mood Thought Process: + circumstantial thought process Thought Content: reality based without delusions Suicidal Thoughts: denies suicidal thoughts Homicidal Thoughts: denies homicidal thoughts Hallucinations: no auditory hallucinations and no visual hallucinations Cognition: attention grossly intact and language grossly intact Estimated Intelligence: consistent with education level Insight: + limited insight Judgement: + limited judgement Vital Signs (Past 24 Hours): Last Vital Signs Temp 36.7 C 05/10/22 12:14 Pulse 68 05/10/22 12:14 Resp 18 05/10/22 12:14 BP 200/115 H 05/10/22 12:14 Pulse Ox 98 05/10/22 12:14 O2 Del Method 05/10/22 12:14 Review of Systems All systems reviewed & are unremarkable except as noted in HPI & below Results & Data (PSY) Laboratory Results 05/10/22 05/09/22 05/09/22 Range/Units 06:10 19:15 13:15 Sodium 142 (136-145) mmol/L Potassium 3.7 (3.5-5.1) mmol/L Chloride 108 H (98-107) mmol/L Carbon Dioxide 30 (21-32) mmol/L Anion Gap 4 (3-11) BUN 9 (6-23) mg/dl Creatinine 0.72 (0.6-1.4) mg/dl Est Cr Clr Drug Dosing 140.9 ml/min Est GFR ( Amer) 132.4 ml/min Est GFR (Non-Af Amer) 114.3 ml/min BUN/Creatinine Ratio 12.5 (10-20) Glucose 87 (70-99(Fasting)) mg/dl Calcium 7.9 L (8.5-10.1) mg/dl Magnesium (1.7-2.4) mg/dl Total Bilirubin 0.7 (0.2-1.0) mg/dl AST 37 (13-39) U/L ALT 54 H (7-52) U/L Alkaline Phosphatase 43 (34-104) U/L Troponin I High Sens (0-20) pg/ml Total Protein 5.8 L (6.0-8.3) gm/dl Albumin 3.6 (3.4-5.0) gm/dl Globulin 2.2 L (2.5-4.0) gm/dl Albumin/Globulin Ratio 1.6 (0.9-2) Lipase (11-82) U/L Vitamin B12 (180-914) pg/ml Folate (>5.38) ng/ml TSH (0.300-4.500) uIu/ml Urine Color Urine Appearance (Clear) Urine pH (4.5-7.5) Ur Specific Laura (1.000-1.030) Urine Protein (Negative) Urine Glucose (UA) (Negative) Urine Ketones (Negative) Urine Blood (Negative) Urine Nitrite (Negative) Urine Bilirubin (Negative) Urine Urobilinogen (Negative) Ur Leukocyte Esterase (Negative) Urine Opiates Screen (Neg) Ur Methadone, Qual (Neg) Urine Barbiturates (Neg) Ur Phencyclidine (PCP) (Neg) U Amphetamin/Meth Scrn (Neg) MDMA (Ecstasy) Screen (Neg) U OH-Alprazolam Confrm Pending U Benzodiazepines Scrn (Neg) 7-Amino Clonazepam Pending Ur Nordiazepam Confirm Pending U OH-ethylflurazepam Pending U Lorazepam Cnf GC/MS Pending U Oxazepam Confm GC/MS Pending Ur Temazepam Confirm Pending U OH-Triazolam Confirm Pending U OH-Midazolam Confirm Pending Ur Cocaine Metabolite (Neg) U Marijuana (THC) Screen (Neg) Drug Screen Comment Pending Ethyl Alcohol mg/dL (<10.0) mg/dl SARS-CoV-2, RNA, NAAT NEGATIVE (NEGATIVE) 05/09/22 05/09/22 05/09/22 Range/Units 13:15 13:15 12:10 Sodium (136-145) mmol/L Potassium (3.5-5.1) mmol/L Chloride (98-107) mmol/L Carbon Dioxide (21-32) mmol/L Anion Gap (3-11) BUN (6-23) mg/dl Creatinine (0.6-1.4) mg/dl Est Cr Clr Drug Dosing ml/min Est GFR ( Amer) ml/min Est GFR (Non-Af Amer) ml/min BUN/Creatinine Ratio (10-20) Glucose (70-99(Fasting)) mg/dl Calcium (8.5-10.1) mg/dl Magnesium (1.7-2.4) mg/dl Total Bilirubin (0.2-1.0) mg/dl AST (13-39) U/L ALT (7-52) U/L Alkaline Phosphatase (34-104) U/L Troponin I High Sens (0-20) pg/ml Total Protein (6.0-8.3) gm/dl Albumin (3.4-5.0) gm/dl Globulin (2.5-4.0) gm/dl Albumin/Globulin Ratio (0.9-2) Lipase (11-82) U/L Vitamin B12 605 (180-914) pg/ml Folate 11.39 (>5.38) ng/ml TSH (0.300-4.500) uIu/ml Urine Color Yellow Urine Appearance Clear (Clear) Urine pH 6.5 (4.5-7.5) Ur Specific Laura 1.004 (1.000-1.030) Urine Protein Negative (Negative) Urine Glucose (UA) Negative (Negative) Urine Ketones Negative (Negative) Urine Blood Negative (Negative) Urine Nitrite Negative (Negative) Urine Bilirubin Negative (Negative) Urine Urobilinogen Negative (Negative) Ur Leukocyte Esterase Negative (Negative) Urine Opiates Screen Neg (Neg) Ur Methadone, Qual Neg (Neg) Urine Barbiturates Neg (Neg) Ur Phencyclidine (PCP) Neg (Neg) U Amphetamin/Meth Scrn Neg (Neg) MDMA (Ecstasy) Screen Neg (Neg) U OH-Alprazolam Confrm U Benzodiazepines Scrn Pos H (Neg) 7-Amino Clonazepam Ur Nordiazepam Confirm U OH-ethylflurazepam U Lorazepam Cnf GC/MS U Oxazepam Confm GC/MS Ur Temazepam Confirm U OH-Triazolam Confirm U OH-Midazolam Confirm Ur Cocaine Metabolite Neg (Neg) U Marijuana (THC) Screen Neg (Neg) Drug Screen Comment Ethyl Alcohol mg/dL (<10.0) mg/dl SARS-CoV-2, RNA, NAAT (NEGATIVE) 05/09/22 05/09/22 05/09/22 Range/Units 12:10 12:10 12:10 Sodium 145 (136-145) mmol/L Potassium 3.6 (3.5-5.1) mmol/L Chloride 108 H (98-107) mmol/L Carbon Dioxide 29 (21-32) mmol/L Anion Gap 8 (3-11) BUN 9 (6-23) mg/dl Creatinine 0.75 (0.6-1.4) mg/dl Est Cr Clr Drug Dosing 135.3 ml/min Est GFR ( Amer) 130.2 ml/min Est GFR (Non-Af Amer) 112.4 ml/min BUN/Creatinine Ratio 12.0 (10-20) Glucose 104 H (70-99(Fasting)) mg/dl Calcium 8.7 (8.5-10.1) mg/dl Magnesium 2.2 (1.7-2.4) mg/dl Total Bilirubin 0.6 (0.2-1.0) mg/dl AST 59 H (13-39) U/L ALT 76 H (7-52) U/L Alkaline Phosphatase 49 (34-104) U/L Troponin I High Sens 6.4 (0-20) pg/ml Total Protein 7.1 (6.0-8.3) gm/dl Albumin 4.3 (3.4-5.0) gm/dl Globulin 2.8 (2.5-4.0) gm/dl Albumin/Globulin Ratio 1.5 (0.9-2) Lipase 135 H (11-82) U/L Vitamin B12 (180-914) pg/ml Folate (>5.38) ng/ml TSH 0.991 (0.300-4.500) uIu/ml Urine Color Urine Appearance (Clear) Urine pH (4.5-7.5) Ur Specific Laura (1.000-1.030) Urine Protein (Negative) Urine Glucose (UA) (Negative) Urine Ketones (Negative) Urine Blood (Negative) Urine Nitrite (Negative) Urine Bilirubin (Negative) Urine Urobilinogen (Negative) Ur Leukocyte Esterase (Negative) Urine Opiates Screen (Neg) Ur Methadone, Qual (Neg) Urine Barbiturates (Neg) Ur Phencyclidine (PCP) (Neg) U Amphetamin/Meth Scrn (Neg) MDMA (Ecstasy) Screen (Neg) U OH-Alprazolam Confrm U Benzodiazepines Scrn (Neg) 7-Amino Clonazepam Ur Nordiazepam Confirm U OH-ethylflurazepam U Lorazepam Cnf GC/MS U Oxazepam Confm GC/MS Ur Temazepam Confirm U OH-Triazolam Confirm U OH-Midazolam Confirm Ur Cocaine Metabolite (Neg) U Marijuana (THC) Screen (Neg) Drug Screen Comment Ethyl Alcohol mg/dL 378.5 H (<10.0) mg/dl SARS-CoV-2, RNA, NAAT (NEGATIVE) Diagnostic Findings Abdomen/Pelvis CT 05/09/22 12:[address] WITH IV CONTRAST CT DOSE: 1372.12 mGy.cm HISTORY: Confusion. Generalized abdominal pain. etoh, diarrhea TECHNIQUE: Multiaxial CT images of the abdomen and pelvis were performed following the use of intravenous contrast. A dose lowering technique was utilized adhering to the principles of ALARA. COMPARISON STUDY: None. FINDINGS: There are mild dependent changes seen within the lung bases. No pneumoperitoneum. No pneumatosis. No fractures within the visualized osseous structures. The heart is borderline enlarged. Hepatic steatosis. The gallbladder, pancreas, spleen, and adrenal glands are unremarkable. Normal right kidney. There is a 10 cm left upper pole renal cyst. This contains a thin septation. There is also a small focus of peripheral calcification within this cyst posteriorly. There is mild bilateral perinephric edema which is likely chronic. No renal or ureteral stones. No retroperitoneal lymphadenopathy. Mild calcified plaque within the normal caliber abdominal aorta. Mild bladder wall th ickening. No pelvic free fluid. No bowel wall thickening or obstruction. Moderate well-formed stool within the colon. Normal appendix. IMPRESSION: 1. Mild bladder wall thickening. Recommend correlation with urinalysis to exclude a cystitis. 2. No bowel wall thickening or obstruction. 3. Normal appendix. 4. Hepatic steatosis. 5. A 10 cm left renal cyst containing a small focus of calcification and a thin septation. This is consistent with a Bosniak type II cyst. ACT 112: Negative or not required by law. Electronically signed by: Andres Brooke M.D. 05/09/2022 2:[address] 05/09/22 12:45 CT head/brain wo con CLINICAL HISTORY: etoh, trauma Technique: Contiguous axial CT images of the head were acquired from the base of the skull to the vertex without intravenous contrast administration. Images were viewed in brain, subdural and bone windows. Automated dose lowering techniques and/or adjustment according to patient size were utilized for this exam. Comparison: None available at the time of this dictation. Findings: The ventricles, basal cisterns, and cerebral sulci are normal. There is no acute intracranial hemorrhage or evidence of acute territorial infarction. Neither mass effect, shift of the midline structures, nor abnormal extra-axial fluid collections are shown. Imaged portions of the paranasal sinuses and mastoid air cells are clear. The orbits appear normal. There are no acute fractures of the calvaria or scalp swelling. Impression: No acute intracranial hemorrhage, no evidence of acute territorial infarction or other acute intracranial disease process. ACT 112: Negative or not required by law. Electronically signed by: Julio Girard M.D. 05/09/2022 2:29 PM Medications Administered Ciprofloxacin (Ciprofloxacin 500 Mg Tab) 500 mg PO BID ROSA Stop: 05/19/22 20:59 Last Admin: 05/10/22 09:05 Dose: 500 mg Documented By: Admin: 05/09/22 21:30 Dose: 500 mg Documented By: ANTHONY Escitalopram Oxalate (Escitalopram Oxalate 10 Mg Tab) 10 mg PO DAILY ROSA Stop: 06/09/22 08:59 Last Admin: 05/10/22 09:06 Dose: 10 mg Documented By: KIMBERLY Sodium Chloride (Nss 1000ml) 1,000 mls @ 75 mls/hr IV .[id number] ROSA Stop: 05/11/22 12:56 Last Admin: 05/10/22 12:17 Dose: 75 mls/hr Documented By: Infusion: 05/10/22 10:51 Dose: 75 mls/hr Documented By: Admin: 05/09/22 21:31 Dose: 75 mls/hr Documented By: ANTHONY Lorazepam 1 mg/ Syringe 1 mls @ 2 mls/min IV UD PRN; Protocol PRN Reason: EtOH Withdrawal AWSS Score 6,7 Stop: 06/08/22 20:56 Last Admin: 05/10/22 12:45 Dose: 2 mls/min Documented By: KIMBERLY Lisinopril (Lisinopril 20 Mg Tab) 20 mg PO DAILY ROSA Stop: 06/09/22 08:59 Last Admin: 05/10/22 09:06 Dose: 20 mg Documented By: KIMBERLY Propranolol HCl (Propranolol Hcl 20 Mg Tab) 40 mg PO BID ROSA Stop: 12/04/22 20:59 Last Admin: 05/10/22 09:06 Dose: 40 mg Documented By: Admin: 05/09/22 21:31 Dose: 40 mg Documented By: ANTHONY Coding Level of Care Code 29967 [facility] Intl Hosp Care Lvl 2 Diagnoses Alcohol withdrawal F10.939 Depression F32.A Alcoholic intoxication F10.929
--- NOTE | 2022-05-10 14:21 | Discharge Summary ---
Date of Service May 10, 2022 Admission HPI Per Admitting Provider This is a 41-year-old male presents emergency department with at bedside due to concern for worsening confusion and bizarre behavior recently. Patient admits to alcohol abuse and states he drinks on a daily basis. Patient states he drinks half of a handle of Jori mccormick every 1-2 days. He did recently go to rehab but signed out after 5 days as he realized he was not yet ready to quit drinking. He was receiving benzos as part of his detox at that time. Patient has been seeing a counselor the last 6 months for anxiety and depression. states recently he has been behaving bizarrely and more confused, even when he did not seem intoxicated. No recent illness, fevers or chills. He denies any concern for trauma or injury. He denies nausea or vomiting, black or bloody stools. He denies chest pain, abdominal pain, trouble breathing. He denies any overt dizziness, except when "tipsy". He states he was told previously that his liver enzymes are elevated likely due to his alcohol use. He was not scheduled to see GI until later on this month. No prior abdominal or liver imaging. concerned for other possible SPRAY [employer]IXER etiology of his confusion in addition to his alcohol abuse. He was at [facility] this morning for a mental health appointment and was referred to the emergency room. Patient has had DTs with withdrawal in the past. Principal Diagnosis alcohol intoxication Discharge Exam The patient is awake, alert and oriented 3, well developed and well nourished, normocephalic and atraumatic, lying in bed and in no acute distress. HEENT--PERRL, EOMI, mucous membranes and oropharynx mildly dry Neck--supple. No JVD. No bruits. Thyroid normal, trachea midline, no adenopathy. Heart--normal S1 and S2. No murmurs, rubs or gallops. Lungs--clear bilaterally, no respiratory distress, no accessory muscle use. Abdomen--normal bowel sounds and soft. Mild epigastric and left sided abdominal pain Extremities--mild tremors Dermatologic--normal skin turgor, normal color, no abnormal lymph nodes, no rash. Neurologic--cranial nerves II through XII grossly intact. Rheumatologic--normal range of motion. Psychiatric--normal affect. Discharge Data Allergies Allergy/AdvReac Type Severity Reaction Status Date / Time Penicillins Allergy Rash Verified 05/09/22 19:09 Consultations 05/09/22 17:55 ED Decision to Admit Stat 05/09/22 20:57 Consult Psychiatry Routine 05/09/22 23:24 Consult Neurology Routine Ordered Studies 05/09/22 12:45 CT abd pelvis IV con only Stat CT head/brain wo con Stat 05/10/22 08:57 MR brain seizure wo/w con Routine Hospital Course (1) Alcoholic intoxication: Patient admitted on account of alcohol intoxication Recently signed himself out of rehab and soon after relapsed and started drinking heavily again CT head did not show any acute [pathology MRI brain done, reveiwed by neurology, shows signs of chronic alcoholm abuse Neurology suggest outpatient EEG patient expressed a strong willingness to be discharged, said he feels very fine Also evaluated by psychiatry, no changes to his lexapro (2) Hypertension: (3) Alcohol abuse: Plan d/c home Total Time Total Time Spent Total Time Spent (In Minutes): 35 Discharge Plan Discharge Items Patient Disposition: Home - Self-Care Reason For Visit: CONFUSION Discharge Diagnosis: alcohol intoxication Activity: Resume your previous activity Non-emergency contact: Primary Care Provider and Neurologist Call non-emergency contact if: you have any medication questions Follow-up/Referrals: Kalpesh Christopher, [Primary Care Provider] - Diet: Regular Addtl Attending Provider Instructions: please endeavor to get the EEG done as suggested by Neurology Follow up with neurology. You are encouraged to enroll in outpatient alcohol rehab Pending Studies at Discharge: No Stand-Alone Forms: My [facility] [employer], Smoking Cessation Medications and DC Order Prescriptions: Continued lisinopril 20 mg tablet 20 mg PO DAILY ciprofloxacin HCl 500 mg tablet 500 mg PO BID propranolol 40 mg tablet 40 mg PO BID simvastatin 20 mg tablet 20 mg PO DAILY escitalopram oxalate 10 mg tablet 10 mg PO DAILY Discharge Orders: Discharge Order (Routine); Ordered 05/10/22 Ordered By: Tanesha Hicks Admission Data Admit Date/Time: 05/09/22 19:07 Attending Provider: Tanesha Hicks Admit Provider: Sj Lerner Primary Care Provider: Kalpesh Christopher Other Providers: Bry Willis Erica K. ; Nurys Aggarwal ; Val Leal ; Ed Fulton ; Joselito Contreras ; Maggi Broderick ; Tiffanie Suárez ; Trav Huynh ; Tiffanie Russo ; Mason Dubon ; Mami Bey ; Eduard Pereira ; Divya Salas ; Lovely Go ; Trav Draper Coding Level of Care Code D/C DAY MANAGEMENT >30 MINS Diagnoses Alcoholic intoxication F10.929 Hypertension I10 Alcohol abuse F10.10 Time Spent (min) 35
--- NOTE | 2022-05-10 23:44 | Magnetic Resonance Report ---
MR brain seizure wo/w con CLINICAL HISTORY: black outs, alcohol abuse TECHNIQUE: Multiplanar and multisequence MR images of the brain were obtained prior to and following administration of gadolinium contrast. Comparison: Comparison is made to CT head 04/08/2022 FINDINGS: No abnormal restricted diffusion is identified. The white matter is unremarkable. The ventricular sys tem is normal in appearance. No mass or abnormal enhancement is seen. There is no mass effect or midl ine shift. There is no evidence of acute intraparenchymal hemorrhage. No extra axial fluid collection s are seen. The corpus callosum, pituitary gland, and cerebellar tonsils appear grossly unremarkable. High-resolution images of the temporal lobes do not demonstrate any signal abnormality. Flow voids of the major intracranial arterial vessels are identified. Maxillary and ethmoid sinus dis ease is seen. IMPRESSION: 1. No acute abnormality. In particular, no edema in the temporal lobes bilaterally in this postictal patient. 2. Sinus disease. ACT 112: Negative or not required by law. Electronically signed by: Julio Girard M.D. 05/10/2022 11:42 PM
[2022-05-11 14:57] LABS: 7-Aminoclonaz, Confirm NEGATIVE ng/mL (<25); Hydro-Alp Ur, GC/MS NEGATIVE ng/mL (<25); Hydroxyethylflurazepam, Conf NEGATIVE ng/mL (<50); Hydroxymidazolam Ur, GC/MS NEGATIVE ng/mL (<50); Hydroxytriazolam NEGATIVE ng/mL (<50); Lorazepam, Ur GC/MS NEGATIVE ng/mL (<50); Nordiazepam, Confirm NEGATIVE ng/mL (<50); Oxazepam Ur, GC/MS 54 ng/mL (<50); Temazepam, Confirm 156 ng/mL (<50)
--- NOTE | 2022-05-18 20:45 | Billing Data ---
Date of Service May 09, 2022 Coding Level of Care Code 26611 Initial Inpt Care Lvl 3
[2022-05-19] MEDS ORDERED: SIMVASTATIN 20 MG TAB PO SCH (09:00)
== END 2022-05-10 15:01 | disposition home or self-care (01) | DRG 897 ==
LOC: ED 11:14 → SUATTDRO 19:07 → 2E 19:07
DX: R25.1 Tremor, unspecified; N41.9 Inflammatory disease of prostate, unspecified; Z87.891 Personal history of nicotine dependence; R74.01 Elevation of levels of liver transaminase levels; F10.229 Alcohol dependence with intoxication, unspecified; Z88.0 Allergy status to penicillin; N28.1 Cyst of kidney, acquired; F32.A Depression, unspecified; I10 Essential (primary) hypertension